=== PATIENT | female | born 1955 | race Caucasian/White ===

== ENCOUNTER 2016-08-03 12:03 | Emergency (ER) | payer OTHER ==
[~2016-08-03] VITALS: Ht 162.6 cm; Wt 117.9 kg
[~2016-08-03 12:03] MED LIST: ASPI81TA2 PO; CARV12.5 PO; CLON0.1T PO; ERGO500047 PO; GLYB1TAB3 PO; HYDR-4076 PO; LORA0.5T PO; SIMV40TA5 PO; SITA100T PO; VALS80TA2 PO
[2016-08-03 13:01] VITALS: BP 153/82
== END 2016-08-03 13:17 | disposition home or self-care (01) ==
LOC: ER 12:04
DX: M25.561 Pain in right knee (principal); I10 Essential (primary) hypertension; E78.00 Pure hypercholesterolemia, unspecified; E11.9 Type 2 diabetes mellitus without complications; Z79.82 Long term (current) use of aspirin
CPT/HCPCS: 73564-TC; A4606; Z7610